=== PATIENT | male | born 1960 | race American Indian/Alaskan Native ===

== ENCOUNTER 2019-03-09 08:17 | Inpatient (IN) | payer MEDICARE ==
[2019-03-09 09:02] LABS: Hematocrit 44.4 % (35.5-45.6); Hemoglobin 14.3 gm/dl (11.8-15.2); Mean Corpuscular HGB Conc 32 % (32-34); Mean Corpuscular Volume 83 fl (84-94); Platelet Count 235 K/mm3 (140-440); Red Blood Count 5.33 M/mm3 (3.65-5.03); Red Cell Distribution Width 17.1 % (13.2-15.2)
[2019-03-09 09:12] LABS: Bilirubin,Urine NEG (Negative); Blood,Urine SM (Negative); Color,Urine Straw (Yellow); Urobilinogen,Urine < 2.0 mg/dL (<2.0)
[2019-03-09 09:20] LABS: Amphetamine Screen,Urine PRESUMPTIVE NEGATIVE; Benzodiazepines Screen,Urine PRESUMPTIVE NEGATIVE; Cannabinoid Screen,Urine PRESUMPTIVE NEGATIVE; Cocaine Screen,Urine PRESUMPTIVE NEGATIVE; Methadone Screen,Urine PRESUMPTIVE NEGATIVE; Opiate Screen,Urine PRESUMPTIVE NEGATIVE
[2019-03-09 09:20] LABS: Alanine Aminotransferase 11 units/L (7-56); BUN/Creatinine Ratio 14; Blood Urea Nitrogen 15 mg/dL (9-20); Calcium 9.6 mg/dL (8.4-10.2); Hemolysis Index 12
--- NOTE | 2019-03-09 09:22 | XRay Report ---
CHEST 2 VIEWS INDICATION / CLINICAL INFORMATION: hypoxia. COMPARISON: None available. FINDINGS: SUPPORT DEVICES: None. HEART / MEDIASTINUM: No significant abnormality. LUNGS / PLEURA: No significant pulmonary or pleural abnormality. No pneumothorax. ADDITIONAL FINDINGS: Degenerative changes are seen throughout the thoracic spine. IMPRESSION: 1. No acute findings. Signer Name: Willam Santos MD Signed: 03/09/2019 9:17 AM Workstation Name: [id number]
[2019-03-09] MEDS ORDERED: hydrALAZINE 25 MG TAB PO ONE (09:34)
--- NOTE | 2019-03-09 09:38 | Emergency Department Report ---
ED Seizure HPI - General Chief Complaint: Seizure Stated Complaint: SEIZURE Time Seen by Provider: 03/09/19 09:15 Source: EMS Mode of arrival: Stretcher Limitations: Other - History of Present Illness Initial Comments: 58-year-old -M[place] male patient with history of hypertension and mental delay presents with possible new onset seizure this morning. Due to patient's mental delay he is a poor historian. Patient's niece reports she found the patient lying on the couch with his legs very stiff in his arms shaking and unresponsive to her voice. She states the patient was had blood and foam coming from his mouth. He also reports the patient slid off the sofa and hit his head on a hard surface. Patient's sister states she is unsure if patient is compliant with his blood pressure medications; patient does admit that he has not been taking his medications. He and his family deny any previous history of seizures, TX/CVA/DVT/PE or other medical conditions. Patient admits to chronic bilateral lower leg swelling and pedal edema. He denies any leg pain or recent long travel, chest pain, shortness of breath, vision changes, headache, dizziness, fatigue, recent head injury, or numbness/tingling. Nurse reports patient did admit to chest tightness -: Sudden Witnessed:: Yes Seizure History: none Place: home Possible Precipitating Event: none Associated Symptoms: denies other symptoms Treatments Prior to Arrival: none - Related Data Previous Rx's Medication Instructions Recorded Last Taken Type amLODIPine 10 mg PO QDAY #30 tablet 03/12/19 Unknown Rx hydrALAZINE [Apresoline TAB] 100 mg PO TID #90 tab 03/12/19 Unknown Rx levETIRAcetam [Keppra TAB] 500 mg PO BID #60 tablet 03/12/19 Unknown Rx Allergies Allergy/AdvReac Type Severity Reaction Status Date / Time No Known Allergies Allergy Unverified 03/09/19 08:33 ED Review of Systems ROS: Stated complaint: SEIZURE Other details as noted in HPI Comment: All other systems reviewed and negative Constitutional: denies: chills, fever Cardiovascular: as per HPI Neurological: as per HPI ED Past Medical Hx - Past Medical History Previous Medical History?: Yes Hx Hypertension: Yes Additional medical history: developmental delays - Social History Smoking Status: Never Smoker Substance Use Type: None - Medications Home Medications: Home Medications Medication Instructions Recorded Confirmed Last Taken Type amLODIPine 10 mg PO QDAY #30 tablet 03/12/19 Unknown Rx hydrALAZINE [Apresoline TAB] 100 mg PO TID #90 tab 03/12/19 Unknown Rx levETIRAcetam [Keppra TAB] 500 mg PO BID #60 tablet 03/12/19 Unknown Rx ED Physical Exam - General Limitations: Other General appearance: alert, in no apparent distress - Head Head exam: Present: atraumatic, normocephalic - Eye Eye exam: Present: normal appearance, PERRL, EOMI. Absent: scleral icterus - ENT ENT exam: Present: mucous membranes moist, other (small left sided tongue injury noted without active bleeding ) - Neck Neck exam: Present: normal inspection, full ROM. Absent: tenderness - Respiratory Respiratory exam: Present: normal lung sounds bilaterally. Absent: respiratory distress, wheezes, rales, rhonchi, chest wall tenderness, accessory muscle use - Cardiovascular Cardiovascular Exam: Present: normal rhythm, tachycardia, normal heart sounds - GI/Abdominal GI/Abdominal exam: Present: soft, normal bowel sounds. Absent: distended, tenderness, guarding, rebound, rigid - Rectal Rectal exam: Present: deferred - Extremities Exam Extremities exam: Present: full ROM, pedal edema. Absent: joint swelling, calf tenderness - Back Exam Back exam: Present: normal inspection, full ROM - Neurological Exam Neurological exam: Present: alert, oriented X3, CN II-XII intact, normal gait, motor sensory deficit - Expanded Neurological Exam Expanded Cerebellar function: Finger to Nose: Normal, Heel to Bills: Normal, Romberg: Normal Motor strength exam: RUE: 5, LUE: 5, RLE: 5, LLE: 5 - Psychiatric Psychiatric exam: Present: normal mood, flat affect. Absent: agitated, anxious, manic - Skin Skin exam: Present: warm, dry, intact, normal color. Absent: rash, diaphoretic, erythema ED Course Vital Signs 03/09/19 03/09/19 03/09/19 08:48 09:30 09:56 Temperature 98.3 F Pulse Rate 105 H 100 H 96 H Respiratory 25 H 18 Rate Blood Pressure 175/103 175/103 Blood Pressure 186/106 [Left] O2 Sat by Pulse 94 94 Oximetry 03/09/19 03/09/19 03/09/19 10:00 10:30 11:00 Temperature Pulse Rate 97 H 91 H 86 Respiratory 21 19 18 Rate Blood Pressure 186/108 136/85 154/88 Blood Pressure [Left] O2 Sat by Pulse 95 94 95 Oximetry 03/09/19 03/09/19 03/09/19 11:10 11:20 11:30 Temperature Pulse Rate 92 H 88 89 Respiratory 29 H 20 19 Rate Blood Pressure 154/88 154/88 154/88 Blood Pressure [Left] O2 Sat by Pulse 96 95 95 Oximetry 03/09/19 03/09/19 03/09/19 11:40 11:50 12:00 Temperature Pulse Rate 83 84 98 H Respiratory 18 20 20 Rate Blood Pressure 154/88 154/88 154/88 Blood Pressure [Left] O2 Sat by Pulse 98 96 97 Oximetry 03/09/19 03/09/19 03/09/19 12:10 12:20 12:30 Temperature Pulse Rate Respiratory Rate Blood Pressure 160/112 160/112 160/112 Blood Pressure [Left] O2 Sat by Pulse 96 96 96 Oximetry 03/09/19 03/09/19 03/09/19 12:48 12:50 13:00 Temperature Pulse Rate Respiratory Rate Blood Pressure 160/112 160/112 160/112 Blood Pressure [Left] O2 Sat by Pulse 98 97 96 Oximetry 03/09/19 03/09/19 03/09/19 13:10 13:20 13:30 Temperature Pulse Rate Respiratory Rate Blood Pressure 160/112 160/112 160/112 Blood Pressure [Left] O2 Sat by Pulse 99 95 95 Oximetry 03/09/19 03/09/19 03/09/19 13:40 13:50 14:00 Temperature Pulse Rate Respiratory Rate Blood Pressure 160/112 181/103 181/103 Blood Pressure [Left] O2 Sat by Pulse 94 95 90 Oximetry 03/09/19 03/09/19 03/09/19 14:10 14:20 14:30 Temperature 97.6 F Pulse Rate 80 Respiratory 20 Rate Blood Pressure 162/99 162/99 162/99 Blood Pressure 162/99 [Left] O2 Sat by Pulse 97 96 98 Oximetry 03/09/19 03/09/19 03/09/19 14:40 14:50 15:00 Temperature Pulse Rate Respiratory Rate Blood Pressure 197/121 197/121 197/121 Blood Pressure [Left] O2 Sat by Pulse 95 92 94 Oximetry 03/09/19 15:10 Temperature Pulse Rate Respiratory Rate Blood Pressure 163/104 Blood Pressure [Left] O2 Sat by Pulse 93 Oximetry ED Medical Decision Making - Lab Data Result diagrams: 03/09/19 08:50 03/10/19 04:36 Lab Results 03/09/19 03/09/19 03/09/19 Range/Units 08:50 08:50 08:50 WBC 6.6 (4.5-11.0) K/mm3 RBC 5.33 H (3.65-5.03) M/mm3 Hgb 14.3 (11.8-15.2) gm/dl Hct 44.4 (35.5-45.6) % MCV 83 L (84-94) fl MCH 27 L (28-32) pg MCHC 32 (32-34) % RDW 17.1 H (13.2-15.2) % Plt Count 235 (140-440) K/mm3 PT (12.2-14.9) Sec. INR (0.87-1.13) APTT (24.2-36.6) Sec. POC ABG pH (7.35-7.45) POC ABG pCO2 (35-45) POC ABG pO2 (80-105) POC ABG HCO3 (22-26 mml/L) POC ABG Total CO2 (23-27mmol/L) POC ABG O2 Sat POC ABG Base Excess ((-2) - (+3)mmol/L) FiO2 % Sodium 138 (137-145) mmol/L Potassium 3.5 L (3.6-5.0) mmol/L Chloride 99.7 (98-107) mmol/L Carbon Dioxide 21 L (22-30) mmol/L Anion Gap 21 mmol/L BUN 15 (9-20) mg/dL Creatinine 1.1 (0.8-1.5) mg/dL Estimated GFR > 60 ml/min BUN/Creatinine Ratio 14 % Glucose 114 H (75-100) mg/dL POC Glucose (70-105) Calcium 9.6 (8.4-10.2) mg/dL Magnesium 1.90 (1.7-2.3) mg/dL Total Bilirubin 0.20 (0.1-1.2) mg/dL AST 16 (5-40) units/L ALT 11 (7-56) units/L Alkaline Phosphatase 70 (35-129) units/L Total Creatine Kinase (55-170) units/L Troponin T (0.00-0.029) ng/mL Total Protein 8.2 (6.3-8.2) g/dL Albumin 4.0 (3.9-5) g/dL Albumin/Globulin Ratio 1.0 % Urine Color (Yellow) Urine Turbidity (Clear) Urine pH (5.0-7.0) Ur Specific Tracy (1.003-1.030) Urine Protein (Negative) mg/dL Urine Glucose (UA) (Negative) mg/dL Urine Ketones (Negative) mg/dL Urine Blood (Negative) Urine Nitrite (Negative) Urine Bilirubin (Negative) Urine Urobilinogen (<2.0) mg/dL Ur Leukocyte Esterase (Negative) Urine WBC (Auto) (0.0-6.0) /HPF Urine RBC (Auto) (0.0-6.0) /HPF U Epithel Cells (Auto) (0-13.0) /HPF Urine Opiates Screen Urine Methadone Screen Ur Barbiturates Screen Ur Phencyclidine Scrn Ur Amphetamines Screen U Benzodiazepines Scrn Urine Cocaine Screen U Marijuana (THC) Screen Drugs of Abuse Note Plasma/Serum Alcohol < 0.01 (0-0.07) % 03/09/19 03/09/19 03/09/19 Range/Units 08:50 08:59 08:59 WBC (4.5-11.0) K/mm3 RBC (3.65-5.03) M/mm3 Hgb (11.8-15.2) gm/dl Hct (35.5-45.6) % MCV (84-94) fl MCH (28-32) pg MCHC (32-34) % RDW (13.2-15.2) % Plt Count (140-440) K/mm3 PT (12.2-14.9) Sec. INR (0.87-1.13) APTT (24.2-36.6) Sec. POC ABG pH (7.35-7.45) POC ABG pCO2 (35-45) POC ABG pO2 (80-105) POC ABG HCO3 (22-26 mml/L) POC ABG Total CO2 (23-27mmol/L) POC ABG O2 Sat POC ABG Base Excess ((-2) - (+3)mmol/L) FiO2 % Sodium (137-145) mmol/L Potassium (3.6-5.0) mmol/L Chloride (98-107) mmol/L Carbon Dioxide (22-30) mmol/L Anion Gap mmol/L BUN (9-20) mg/dL Creatinine (0.8-1.5) mg/dL Estimated GFR ml/min BUN/Creatinine Ratio % Glucose (75-100) mg/dL POC Glucose (70-105) Calcium (8.4-10.2) mg/dL Magnesium (1.7-2.3) mg/dL Total Bilirubin (0.1-1.2) mg/dL AST (5-40) units/L ALT (7-56) units/L Alkaline Phosphatase (35-129) units/L Total Creatine Kinase 159 (55-170) units/L Troponin T < 0.010 (0.00-0.029) ng/mL Total Protein (6.3-8.2) g/dL Albumin (3.9-5) g/dL Albumin/Globulin Ratio % Urine Color Straw (Yellow) Urine Turbidity Clear (Clear) Urine pH 6.0 (5.0-7.0) Ur Specific Tracy 1.014 (1.003-1.030) Urine Protein 100 mg/dl (Negative) mg/dL Urine Glucose (UA) Neg (Negative) mg/dL Urine Ketones Neg (Negative) mg/dL Urine Blood Sm (Negative) Urine Nitrite Neg (Negative) Urine Bilirubin Neg (Negative) Urine Urobilinogen < 2.0 (<2.0) mg/dL Ur Leukocyte Esterase Neg (Negative) Urine WBC (Auto) 1.0 (0.0-6.0) /HPF Urine RBC (Auto) 5.0 (0.0-6.0) /HPF U Epithel Cells (Auto) < 1.0 (0-13.0) /HPF Urine Opiates Screen Presumptive negative Urine Methadone Screen Presumptive negative Ur Barbiturates Screen Presumptive negative Ur Phencyclidine Scrn Presumptive negative Ur Amphetamines Screen Presumptive negative U Benzodiazepines Scrn Presumptive negative Urine Cocaine Screen Presumptive negative U Marijuana (THC) Screen Presumptive negative Drugs of Abuse Note Disclamer Plasma/Serum Alcohol (0-0.07) % 03/09/19 03/09/19 03/09/19 Range/Units 09:04 09:15 11:19 WBC (4.5-11.0) K/mm3 RBC (3.65-5.03) M/mm3 Hgb (11.8-15.2) gm/dl Hct (35.5-45.6) % MCV (84-94) fl MCH (28-32) pg MCHC (32-34) % RDW (13.2-15.2) % Plt Count (140-440) K/mm3 PT 13.1 (12.2-14.9) Sec. INR 1.00 (0.87-1.13) APTT 25.9 (24.2-36.6) Sec. POC ABG pH 7.393 (7.35-7.45) POC ABG pCO2 42.4 (35-45) POC ABG pO2 77 L (80-105) POC ABG HCO3 25.9 (22-26 mml/L) POC ABG Total CO2 27 (23-27mmol/L) POC ABG O2 Sat 95 POC ABG Base Excess 1 ((-2) - (+3)mmol/L) FiO2 21 % Sodium (137-145) mmol/L Potassium (3.6-5.0) mmol/L Chloride (98-107) mmol/L Carbon Dioxide (22-30) mmol/L Anion Gap mmol/L BUN (9-20) mg/dL Creatinine (0.8-1.5) mg/dL Estimated GFR ml/min BUN/Creatinine Ratio % Glucose (75-100) mg/dL POC Glucose 77 (70-105) Calcium (8.4-10.2) mg/dL Magnesium (1.7-2.3) mg/dL Total Bilirubin (0.1-1.2) mg/dL AST (5-40) units/L ALT (7-56) units/L Alkaline Phosphatase (35-129) units/L Total Creatine Kinase (55-170) units/L Troponin T (0.00-0.029) ng/mL Total Protein (6.3-8.2) g/dL Albumin (3.9-5) g/dL Albumin/Globulin Ratio % Urine Color (Yellow) Urine Turbidity (Clear) Urine pH (5.0-7.0) Ur Specific Tracy (1.003-1.030) Urine Protein (Negative) mg/dL Urine Glucose (UA) (Negative) mg/dL Urine Ketones (Negative) mg/dL Urine Blood (Negative) Urine Nitrite (Negative) Urine Bilirubin (Negative) Urine Urobilinogen (<2.0) mg/dL Ur Leukocyte Esterase (Negative) Urine WBC (Auto) (0.0-6.0) /HPF Urine RBC (Auto) (0.0-6.0) /HPF U Epithel Cells (Auto) (0-13.0) /HPF Urine Opiates Screen Urine Methadone Screen Ur Barbiturates Screen Ur Phencyclidine Scrn Ur Amphetamines Screen U Benzodiazepines Scrn Urine Cocaine Screen U Marijuana (THC) Screen Drugs of Abuse Note Plasma/Serum Alcohol (0-0.07) % - Radiology Data Radiology results: report reviewed CHEST 2 VIEWS INDICATION / CLINICAL INFORMATION: hypoxia. COMPARISON: None available. FINDINGS: SUPPORT DEVICES: None. HEART / MEDIASTINUM: No significant abnormality. LUNGS / PLEURA: No significant pulmonary or pleural abnormality. No pneum othorax. ADDITIONAL FINDINGS: Degenerative changes are seen throughout the thoracic spine. IMPRESSION: 1. No acute findings. . . . . CT head/brain wo con INDICATION / CLINICAL INFORMATION: 58 years Male; possible new onset seizure. TECHNIQUE: Routine CT head without contrast. All CT scans at this location are performed using CT dose reduction for [employer] by means of automated exposure control. COMPARISON: None. FINDINGS: BRAIN / INTRACRANIAL CONTENTS: No acute hemorrhage, mass effect, midline shift, hydrocephalus, or acute, large territorial infarct. No chronic infarct or atrophy appreciated. There are mild areas of decreased attenuation in the white matter of the cerebral hemispheres. These are nonspecific findings and may be related to microangiopathy (hypertension, diabetes, atherosclerosis), given the patient's age. CRANIOCERVICAL JUNCTION: No significant abnormality. ORBITS: No significant abnormality of visualized orbits. SINUSES / MASTOIDS: No significant abnormality the visualized paranasal sinuses or mastoid air cells. ADDITIONAL FINDINGS: None. IMPRESSION: 1. No focal mass, hemorrhage, hydrocephalus, or acute, large territorial infarct. . . . . . CTA CHEST WITH IV CONTRAST INDICATION: Hypoxia. TECHNIQUE: Axial CT images were obtained through the chest after injection of 100 mL Omnipaque 350 IV contrast. 3 plane MIP reconstructions were produced. All CT scans at this location are performed using CT dose reduction for ALARA by means of automated exposure control. COMPARISON: 2 views of the chest from earlier today. FINDINGS: PULMONARY ARTERIES: The pulmonary arteries are fairly opacified. No distinct central from embolism is seen. AORTA AND ARTERIES: No acute abnormality. MEDIASTINUM: There is marked left ventricular hypertrophy with a trace pericardial effusion. No mediastinal mass, lymphadenopathy or other significant abnormality is seen. LUNGS: No suspicious consolidation, nodule or mass. No pneumothorax or pleural effusion. ADDITIONAL FINDINGS: None. UPPER ABDOMEN: No acute abnormality is noted. Multiple hepatic cysts measure up to 3.7 cm medially along the left hepatic lobe. A hypodense left adrenal nodule measures 3.1 x 2.2 cm and is incompletely evaluated. No additional significant abnormality is seen. BONES: No acute abnormality is noted. There are degenerative changes throughout the spine. IMPRESSION: 1. No distinct central pulmonary artery thromboembolism. 2. No acute abnormality of the chest. 3. Additional findings as above. - Medical Decision Making 58-year-old male patient with history of hypertension and mental delay here for new onset seizure. Labs are without acute findings. CT head is WNL. Vitals show continued hypoxia of 92-94% on room air. Patient satting at 97% with 2 L oxygen via nasal cannula. No further seizure activity has been observed patient here in ED. Heart score = 4. Discussed patient with Dr. Weaver to be admitted for encephalopathy and hypoxia Critical care attestation.: If time is entered above; I have spent that time in minutes in the direct care of this critically ill patient, excluding procedure time. ED Disposition Clinical Impression: Encephalopathy, Hypoxia, Seizure-like activity Disposition: OP ADMIT IP TO THIS HOSP Is pt being admited?: Yes Condition: Fair
[2019-03-09 09:43] LABS: Partial Thromboplastin Time 25.9 Sec. (24.2-36.6)
--- NOTE | 2019-03-09 11:27 | Cat Scan Report ---
CT head/brain wo con INDICATION / CLINICAL INFORMATION: 58 years Male; possible new onset seizure. TECHNIQUE: Routine CT head without contrast. All CT scans at this location are performed using CT dos e reduction for ALARA by means of automated exposure control. COMPARISON: None. FINDINGS: BRAIN / INTRACRANIAL CONTENTS: No acute hemorrhage, mass effect, midline shift, hydrocephalus, or acu te, large territorial infarct. No chronic infarct or atrophy appreciated. There are mild areas of dec reased attenuation in the white matter of the cerebral hemispheres. These are nonspecific findings an d may be related to microangiopathy (hypertension, diabetes, atherosclerosis), given the patient's ag e. CRANIOCERVICAL JUNCTION: No significant abnormality. ORBITS: No significant abnormality of visualized orbits. SINUSES / MASTOIDS: No significant abnormality the visualized paranasal sinuses or mastoid air cells. ADDITIONAL FINDINGS: None. IMPRESSION: 1. No focal mass, hemorrhage, hydrocephalus, or acute, large territorial infarct. Signer Name: Thong Winn MD, III Signed: 03/09/2019 11:22 AM Workstation Name: [id number]
--- NOTE | 2019-03-09 13:19 | Cat Scan Report ---
CTA CHEST WITH IV CONTRAST INDICATION: Hypoxia. TECHNIQUE: Axial CT images were obtained through the chest after injection of 100 mL Omnipaque 350 IV contrast. 3 plane MIP reconstructions were produced. All CT scans at this location are performed using CT dose reduction for ALARA by means of automated exposure control. COMPARISON: 2 views of the chest from earlier today. FINDINGS: PULMONARY ARTERIES: The pulmonary arteries are fairly opacified. No distinct central from embolism is seen. AORTA AND ARTERIES: No acute abnormality. MEDIASTINUM: There is marked left ventricular hypertrophy with a trace pericardial effusion. No media stinal mass, lymphadenopathy or other significant abnormality is seen. LUNGS: No suspicious consolidation, nodule or mass. No pneumothorax or pleural effusion. ADDITIONAL FINDINGS: None. UPPER ABDOMEN: No acute abnormality is noted. Multiple hepatic cysts measure up to 3.7 cm medially al eric the left hepatic lobe. A hypodense left adrenal nodule measures 3.1 x 2.2 cm and is incompletely evaluated. No additional significant abnormality is seen. BONES: No acute abnormality is noted. There are degenerative changes throughout the spine. IMPRESSION: 1. No distinct central pulmonary artery thromboembolism. 2. No acute abnormality of the chest. 3. Additional findings as above. Signer Name: Mukesh Pérez MD Signed: 03/09/2019 1:15 PM Workstation Name: [id number]
[2019-03-09] MEDS ORDERED: ACETAMINOPHEN 325 MG TAB PO PRN (13:43)
[2019-03-09] MEDS ORDERED: ONDANSETRON 4 MG/2 ML INJ IV PRN (13:43)
--- NOTE | 2019-03-09 13:43 | History and Physical Report ---
History of Present Illness Chief complaint: He had a seizure History of present illness: 58 YO Male with HTN, Developmental Delay presents to ED for evaluation. Pt is confused, lethargic and unable to provide history. Pt history taken from EMS, ED staff, and patient family. As per family, the patient was in his usual state of health and lying on the couch. The patient suddenly became unresponsive and was noticed by family to have "foam coming out of his mouth" as well as shaking uncontrollably. Pt fell off the couch and struck his head on the floor and bit his tongue. EMS was notified, and upon arrival the patient was found to be in distress and transported to [facility]. Pt seen and evaluated in ED and found to have Encephalopathy, Acidosis, as well as New onset seizure. Pt admitted to medical floor. Pt unable to provide further history. Pt is confused, and lethargic but has a positive gag reflex, and in able to protect his airway. No prior admission for review. All listed medication reconciled at time of admission. Past History Past Medical History: hypertension, other (see HPI) Past Surgical History: No surgical history, Other (reviewed) Social history: single. denies: smoking, alcohol abuse, prescription drug abuse Family history: no significant family history, other (reviewed) Medications and Allergies Allergies Allergy/AdvReac Type Severity Reaction Status Date / Time No Known Allergies Allergy Unverified 03/09/19 08:33 Home Medications Medication Instructions Recorded Confirmed Last Taken Type amLODIPine [Norvasc] 5 mg PO DAILY 03/09/19 03/09/19 Unknown History Review of Systems ROS unobtainable: due to mental status Exam - Constitutional Vitals: Temp Pulse Resp BP Pulse Ox 98.3 F 91 H 19 136/85 94 03/09/19 08:48 03/09/19 10:30 03/09/19 10:30 03/09/19 10:30 03/09/19 10:30 General appearance: Present: mild distress, obese - EENT Eyes: Present: miosis ENT: hearing intact, clear oral mucosa - Neck Neck: Present: supple, normal ROM - Respiratory Respiratory effort: normal Respiratory: bilateral: CTA - Cardiovascular Heart Sounds: Present: S1 & S2. Absent: rub, click - Extremities Extremities: pulses symmetrical, No edema Peripheral Pulses: within normal limits - Abdominal General gastrointestinal: Present: soft, non-tender, non-distended, normal bowel sounds Male genitourinary: Present: normal - Integumentary Integumentary: Present: clear, warm, dry - Musculoskeletal Musculoskeletal: generalized weakness - Psychiatric Psychiatric: no appropriate mood/affect, no intact judgment & insight, no memory intact - Neurologic Neurologic: CNII-XII intact, no focal deficits, moves all extremities, no gait normal Results - Labs CBC & Chem 7: 03/09/19 08:50 03/09/19 08:50 Labs: Abnormal lab results 03/09/19 03/09/19 03/09/19 Range/Units 08:50 08:50 11:19 RBC 5.33 H (3.65-5.03) M/mm3 MCV 83 L (84-94) fl MCH 27 L (28-32) pg RDW 17.1 H (13.2-15.2) % POC ABG pO2 77 L (80-105) Potassium 3.5 L (3.6-5.0) mmol/L Carbon Dioxide 21 L (22-30) mmol/L Glucose 114 H (75-100) mg/dL Assessment and Plan - Patient Problems (1) Encephalopathy Current Visit: Yes Status: Acute Plan to address problem: CT Head, Neuro check, seizure precautions, seizure precautions, fall precautions, thyroid panel (2) Seizure disorder Current Visit: Yes Status: Acute Plan to address problem: EEG, seizure precautions, thyroid panel, supportive care. (3) Acidosis Current Visit: Yes Status: Acute Plan to address problem: IVF resuscitation therapy, CMP, supportive are, repeat bmp in am. (4) DVT prophylaxis Current Visit: Yes Status: Acute Plan to address problem: SCD to BLE while in bed, prophylactic anticoagulation
[2019-03-09 19:47] LABS: Free T4 (Free Thyroxine) 1.24 ng/dL (0.76-1.46)
[2019-03-09] MEDS: ENOXAPARIN 40 MG/0.4 ML INJ SUB-Q SCH (21:37)
[2019-03-10] MEDS: oxyCODONE /ACETAMINOPHEN 5-325MG TAB PO PRN ×2 (03:38→15:01)
[2019-03-10 05:21] LABS: Alanine Aminotransferase 14 units/L (7-56); Albumin 3.5 g/dL (3.9-5); BUN/Creatinine Ratio 15; Blood Urea Nitrogen 16 mg/dL (9-20); Calcium 8.8 mg/dL (8.4-10.2); Hemolysis Index 5
[2019-03-10] MEDS: POTASSIUM CHLORIDE ER 20 MEQ TAB PO SCH ×2 (10:36→14:55)
[2019-03-10] MEDS: amLODIPine 5 MG TAB PO SCH (10:36)
[2019-03-10] MEDS ORDERED: FLU VACC QUAD 2019-20 (3 YR UP)/PF 60 MCG/0.5 ML SYRINGE IM ONE (12:00)
--- NOTE | 2019-03-10 13:02 | Progress Note ---
Assessment and Plan Assessment and plan: Seizures patient presented with seizures says he last had seizure in 1968 Morbid obesity adviced diet and exercise Hypertensive urgency BP uncontrolled continue Norvasc 5 mg po daily add Hydralazine Full code History Interval history: patient presented with seizures Hospitalist Physical - Physical exam Narrative exam: Gen: Not in acute distress, lying in bed,morbidly obese HEENT: Normocephalic, atraumatic Neck: supple, no JVD Heart: S1 and S2 reg, no murmurs, rubs or gallop Lungs: Clear to auscultation bilaterally, Abd: soft, non tender, non distended, normal BS, Ext: No edema, no clubbing, no cyanosis Neuro: Awake, alert, oriented X 3, no focal neurological signs - Constitutional Vitals: Temp Pulse Resp BP Pulse Ox 98.2 F 81 20 162/90 95 03/10/19 06:32 03/10/19 10:36 03/10/19 06:32 03/10/19 10:36 03/10/19 06:32 General appearance: Present: obese Results - Labs CBC & Chem 7: 03/09/19 08:50 03/10/19 04:36 Labs: Laboratory Last Values WBC 6.6 K/mm3 (4.5-11.0) 03/09/19 08:50 RBC 5.33 M/mm3 (3.65-5.03) H 03/09/19 08:50 Hgb 14.3 gm/dl (11.8-15.2) 03/09/19 08:50 Hct 44.4 % (35.5-45.6) 03/09/19 08:50 MCV 83 fl (84-94) L 03/09/19 08:50 MCH 27 pg (28-32) L 03/09/19 08:50 MCHC 32 % (32-34) 03/09/19 08:50 RDW 17.1 % (13.2-15.2) H 03/09/19 08:50 Plt Count 235 K/mm3 (140-440) 03/09/19 08:50 PT 13.1 Sec. (12.2-14.9) 03/09/19 09:04 INR 1.00 (0.87-1.13) 03/09/19 09:04 APTT 25.9 Sec. (24.2-36.6) 03/09/19 09:04 POC ABG pH 7.393 (7.35-7.45) 03/09/19 11:19 POC ABG pCO2 42.4 (35-45) 03/09/19 11:19 POC ABG pO2 77 (80-105) L 03/09/19 11:19 POC ABG HCO3 25.9 (22-26 mml/L) 03/09/19 11:19 POC ABG Total CO2 27 (23-27mmol/L) 03/09/19 11:19 POC ABG O2 Sat 95 03/09/19 11:19 POC ABG Base Excess 1 ((-2) - (+3)mmol/L) 03/09/19 11:19 FiO2 21 % 03/09/19 11:19 Sodium 138 mmol/L (137-145) 03/10/19 04:36 Potassium 3.3 mmol/L (3.6-5.0) L 03/10/19 04:36 Chloride 100.0 mmol/L (98-107) 03/10/19 04:36 Carbon Dioxide 26 mmol/L (22-30) 03/10/19 04:36 Anion Gap 15 mmol/L 03/10/19 04:36 BUN 16 mg/dL (9-20) 03/10/19 04:36 Creatinine 1.1 mg/dL (0.8-1.5) 03/10/19 04:36 Estimated GFR > 60 ml/min 03/10/19 04:36 BUN/Creatinine Ratio 15 % 03/10/19 04:36 Glucose 99 mg/dL (75-100) 03/10/19 04:36 POC Glucose 108 (70-105) H 03/09/19 21:10 Calcium 8.8 mg/dL (8.4-10.2) 03/10/19 04:36 Magnesium 1.90 mg/dL (1.7-2.3) 03/09/19 08:50 Total Bilirubin 0.30 mg/dL (0.1-1.2) 03/10/19 04:36 AST 21 units/L (5-40) 03/10/19 04:36 ALT 14 units/L (7-56) 03/10/19 04:36 Alkaline Phosphatase 57 units/L (35-129) 03/10/19 04:36 Total Creatine Kinase 159 units/L (55-170) 03/09/19 08:50 Troponin T 0.019 ng/mL (0.00-0.029) 03/09/19 12:00 Total Protein 6.9 g/dL (6.3-8.2) 03/10/19 04:36 Albumin 3.5 g/dL (3.9-5) L 03/10/19 04:36 Albumin/Globulin Ratio 1.0 % 03/10/19 04:36 TSH 0.736 mlU/mL (0.270-4.200) 03/09/19 18:35 Free T4 1.24 ng/dL (0.76-1.46) 03/09/19 18:35 Urine Color Straw (Yellow) 03/09/19 08:59 Urine Turbidity Clear (Clear) 03/09/19 08:59 Urine pH 6.0 (5.0-7.0) 03/09/19 08:59 Ur Specific [place] 1.014 (1.003-1.030) 03/09/19 08:59 Urine Protein 100 mg/dl mg/dL (Negative) 03/09/19 08:59 Urine Glucose (UA) Neg mg/dL (Negative) 03/09/19 08:59 Urine Ketones Neg mg/dL (Negative) 03/09/19 08:59 Urine Blood Sm (Negative) 03/09/19 08:59 Urine Nitrite Neg (Negative) 03/09/19 08:59 Urine Bilirubin Neg (Negative) 03/09/19 08:59 Urine Urobilinogen < 2.0 mg/dL (<2.0) 03/09/19 08:59 Ur Leukocyte Esterase Neg (Negative) 03/09/19 08:59 Urine WBC (Auto) 1.0 /HPF (0.0-6.0) 03/09/19 08:59 Urine RBC (Auto) 5.0 /HPF (0.0-6.0) 03/09/19 08:59 U Epithel Cells (Auto) < 1.0 /HPF (0-13.0) 03/09/19 08:59 Urine Opiates Screen Presumptive negative 03/09/19 08:59 Urine Methadone Screen Presumptive negative 03/09/19 08:59 Ur Barbiturates Screen Presumptive negative 03/09/19 08:59 Ur Phencyclidine Scrn Presumptive negative 03/09/19 08:59 Ur Amphetamines Screen Presumptive negative 03/09/19 08:59 U Benzodiazepines Scrn Presumptive negative 03/09/19 08:59 Urine Cocaine Screen Presumptive negative 03/09/19 08:59 U Marijuana (THC) Screen Presumptive negative 03/09/19 08:59 Drugs of Abuse Note Disclamer 03/09/19 08:59 Plasma/Serum Alcohol < 0.01 % (0-0.07) 03/09/19 08:50 Active Medications - Current Medications Current Medications: Generic Name Dose Route Start Last Admin Trade Name Freq PRN Reason Stop Dose Admin Acetaminophen 650 mg 03/09/19 13:43 03/10/19 00:42 Tylenol PO 650 mg Q4H PRN Administration Pain MILD(1-3)/Fever >100.5/DONALDSON Amlodipine Besylate 5 mg 03/10/19 10:00 03/10/19 10:36 Amlodipine PO 5 mg DAILY DHEERAJ Administration Enoxaparin Sodium 40 mg 03/09/19 22:00 03/09/19 21:37 Enoxaparin SUB-Q 40 mg QDAY@2200 DHEERAJ Administration Ondansetron HCl 4 mg 03/09/19 13:43 Zofran IV Q8H PRN Nausea And Vomiting Oxycodone/Acetaminophen 1 tab 03/10/19 03:20 03/10/19 03:38 Percocet 5/325 PO 1 tab Q6H PRN Administration Pain, Moderate (4-6) Potassium Chloride 40 meq 03/10/19 09:00 03/10/19 10:36 K-Dur PO 03/10/19 15:01 40 meq Q6H DHEERAJ Administration Sodium Chloride 10 ml 03/09/19 22:00 03/10/19 10:37 Sodium Chloride Flush Syringe 10 Ml IV 10 ml BID DHEERAJ Administration Sodium Chloride 10 ml 03/09/19 13:43 Sodium Chloride Flush Syringe 10 Ml IV PRN PRN LINE FLUSH
[2019-03-10] MEDS: hydrALAZINE 25 MG TAB PO SCH ×2 (15:53→21:23)
--- NOTE | 2019-03-10 17:53 | Consultation ---
History of Present Illness Consult date: 03/10/19 Chief complaint: seizure History of present illness: This is a 58 YO M who presented to the ED with seizure. Per the notes pt started foaming at the mouth and shaking and fell off the couch and hit his head. On my arrival he is totally at baseline. SAys he had a seizure before in 1968 but can not give details. Not on seizure medications. Past History Past Medical History: hypertension, other (see HPI) Past Surgical History: No surgical history, Other (reviewed) Social history: single. denies: smoking, alcohol abuse, prescription drug abuse Family history: no significant family history, other (reviewed) Medications and Allergies Allergies Allergy/AdvReac Type Severity Reaction Status Date / Time No Known Allergies Allergy Unverified 03/09/19 08:33 Home Medications Medication Instructions Recorded Confirmed Last Taken Type amLODIPine [Norvasc] 5 mg PO DAILY 03/09/19 03/09/19 Unknown History Active Meds: Active Medications Acetaminophen (Tylenol) 650 mg PO Q4H PRN PRN Reason: Pain MILD(1-3)/Fever >100.5/DONALDSON Last Admin: 03/10/19 00:42 Dose: 650 mg Documented by: Amlodipine Besylate (Amlodipine) 5 mg PO DAILY [facility] Last Admin: 03/10/19 10:36 Dose: 5 mg Documented by: Enoxaparin Sodium (Enoxaparin) 40 mg SUB-Q QDAY@2200 [facility] Last Admin: 03/09/19 21:37 Dose: 40 mg Documented by: Hydralazine HCl (Apresoline) 50 mg PO Q8HR [facility] Last Admin: 03/10/19 15:53 Dose: 50 mg Documented by: Ondansetron HCl (Zofran) 4 mg IV Q8H PRN PRN Reason: Nausea And Vomiting Oxycodone/Acetaminophen (Percocet 5/325) 1 tab PO Q6H PRN PRN Reason: Pain, Moderate (4-6) Last Admin: 03/10/19 15:01 Dose: 1 tab Documented by: Sodium Chloride (Sodium Chloride Flush Syringe 10 Ml) 10 ml IV BID [facility] Last Admin: 03/10/19 10:37 Dose: 10 ml Documented by: Sodium Chloride (Sodium Chloride Flush Syringe 10 Ml) 10 ml IV PRN PRN PRN Reason: LINE FLUSH Review of Systems Neurological: seizures Physical Examination - Vital Signs Vital Signs: Vital Signs Temp Pulse Resp BP Pulse Ox 98.3 F 105 H 25 H 186/106 94 03/09/19 08:48 03/09/19 08:48 03/09/19 08:48 03/09/19 08:48 03/09/19 08:48 - Constitutional General appearance: comfortable - EENT EENT: Present: mucous membranes moist - Respiratory Respiratory: Present: lungs clear - Cardiovascular Cardiovascular: Present: regular rate - Integumentary Integumentary: Present: normal - Neurologic Cranial nerve examination: PERRL, EOMI, face symmetric, tongue midline Speech examination: intact Sensorimotor examination: intact Detailed motor examination: grossly full strength in Reflex and gait examination: intact Reflexes: 1+: ankle, bicep, knee, tricep - Psychiatric Psychiatric: Present: mood/affect appropriate Results - Laboratory Findings CBC and BMP: 03/09/19 08:50 03/10/19 04:36 Abnormal Lab Findings: Abnormal Labs 03/09/19 03/09/19 03/09/19 08:50 08:50 11:19 RBC 5.33 H MCV 83 L MCH 27 L RDW 17.1 H POC ABG pO2 77 L Potassium 3.5 L Carbon Dioxide 21 L Glucose 114 H POC Glucose Albumin 03/09/19 03/10/19 21:10 04:36 RBC MCV MCH RDW POC ABG pO2 Potassium 3.3 L Carbon Dioxide Glucose POC Glucose 108 H Albumin 3.5 L - Diagnostic Findings Additional findings: Head CT WNL Assessment and Plan This is a 58 YO M with at least 2 seizures. REcommend: EEG MRI Brain w/wo(if no contrast contraindication) Would start Keppra 500 mg BID since this is not pt's first seizure Pt will need to follow up with neuro outpatient Seizure precautions No driving as per [place] law x 6 months post seizure Continue care for all medical issues as you are doing
[2019-03-10] MEDS: ENOXAPARIN 40 MG/0.4 ML INJ SUB-Q SCH (21:20)
[2019-03-10] MEDS: levETIRAcetam 500 MG TAB PO SCH (21:22)
[2019-03-11] MEDS: oxyCODONE /ACETAMINOPHEN 5-325MG TAB PO PRN (09:38)
[2019-03-11] MEDS: hydrALAZINE 25 MG TAB PO SCH ×3 (11:41→18:14)
[2019-03-11] MEDS: amLODIPine 5 MG TAB PO SCH (11:42)
[2019-03-11] MEDS: levETIRAcetam 500 MG TAB PO SCH ×2 (11:42→21:23)
--- NOTE | 2019-03-11 11:57 | Magnetic Resonance Report ---
MRI BRAIN WITHOUT CONTRAST INDICATION / CLINICAL INFORMATION: seizure. TECHNIQUE: Multiplanar, multisequence MR images of the brain were obtained. COMPARISON: None available. FINDINGS: BRAIN / INTRACRANIAL CONTENTS: There is extensive a cerebral white matter disease, most notably invol ving the periventricular regions and most consistent with microvascular angiopathy at. There is also hypointensity along the left parietal subcortical region on the susceptibility weighted imaging which likely reflects chronic blood products related to old ischemic changes. The diffusion imaging reveal s no evidence of acute infarction. The ventricular system is appropriate in size and configuration. No extra-axial fluid collections or significant mass effect is identified. The motion degrades image quality, particularly on the postcon trast sequences. However, no definitive intracranial enhancing lesions are appreciated. CRANIOCERVICAL JUNCTION: No significant abnormality. VASCULAR FLOW-VOIDS: There is relative small caliber of the vertebral basilar system which is likely developmental. The distal internal carotid arteries appear to demonstrate appropriate signal voids. ORBITS: No significant abnormality of visualized orbits. SINUSES / MASTOIDS: There is minimal mucosal thickening within the ethmoid air cells. ADDITIONAL FINDINGS: None. IMPRESSION: 1. There is extensive microvascular angiopathy as detailed above without evidence of acute infarction . Signer Name: Oj Thornton MD Signed: 03/11/2019 11:53 AM Workstation Name: [id number]
--- NOTE | 2019-03-11 16:47 | Progress Note ---
Assessment and Plan Assessment and plan: Seizures patient presented with seizures says he last had seizure in 1968 For EEG today Neurology following Morbid obesity adviced diet and exercise Hypertensive urgency BP uncontrolled Increase Norvasc to 10mg po daily Increase Hydralazine to 100mg tid Full code status. History Interval history: patient presented with seizures Hospitalist Physical - Physical exam Narrative exam: Gen: Not in acute distress, lying in bed,morbidly obese HEENT: Normocephalic, atraumatic Neck: supple, no JVD Heart: S1 and S2 reg, no murmurs, rubs or gallop Lungs: Clear to auscultation bilaterally, Abd: soft, non tender, non distended, normal BS, Ext: No edema, no clubbing, no cyanosis Neuro: Awake, alert, oriented X 3, no focal neurological signs - Constitutional Vitals: Temp Pulse Resp BP Pulse Ox 98.4 F 99 H 18 182/109 92 03/11/19 11:35 03/11/19 11:35 03/11/19 11:35 03/11/19 11:35 03/11/19 11:35 General appearance: Present: obese Results - Labs CBC & Chem 7: 03/09/19 08:50 03/10/19 04:36 Labs: Laboratory Last Values WBC 6.6 K/mm3 (4.5-11.0) 03/09/19 08:50 RBC 5.33 M/mm3 (3.65-5.03) H 03/09/19 08:50 Hgb 14.3 gm/dl (11.8-15.2) 03/09/19 08:50 Hct 44.4 % (35.5-45.6) 03/09/19 08:50 MCV 83 fl (84-94) L 03/09/19 08:50 MCH 27 pg (28-32) L 03/09/19 08:50 MCHC 32 % (32-34) 03/09/19 08:50 RDW 17.1 % (13.2-15.2) H 03/09/19 08:50 Plt Count 235 K/mm3 (140-440) 03/09/19 08:50 PT 13.1 Sec. (12.2-14.9) 03/09/19 09:04 INR 1.00 (0.87-1.13) 03/09/19 09:04 APTT 25.9 Sec. (24.2-36.6) 03/09/19 09:04 POC ABG pH 7.393 (7.35-7.45) 03/09/19 11:19 POC ABG pCO2 42.4 (35-45) 03/09/19 11:19 POC ABG pO2 77 (80-105) L 03/09/19 11:19 POC ABG HCO3 25.9 (22-26 mml/L) 03/09/19 11:19 POC ABG Total CO2 27 (23-27mmol/L) 03/09/19 11:19 POC ABG O2 Sat 95 03/09/19 11:19 POC ABG Base Excess 1 ((-2) - (+3)mmol/L) 03/09/19 11:19 FiO2 21 % 03/09/19 11:19 Sodium 138 mmol/L (137-145) 03/10/19 04:36 Potassium 3.3 mmol/L (3.6-5.0) L 03/10/19 04:36 Chloride 100.0 mmol/L (98-107) 03/10/19 04:36 Carbon Dioxide 26 mmol/L (22-30) 03/10/19 04:36 Anion Gap 15 mmol/L 03/10/19 04:36 BUN 16 mg/dL (9-20) 03/10/19 04:36 Creatinine 1.1 mg/dL (0.8-1.5) 03/10/19 04:36 Estimated GFR > 60 ml/min 03/10/19 04:36 BUN/Creatinine Ratio 15 % 03/10/19 04:36 Glucose 99 mg/dL (75-100) 03/10/19 04:36 POC Glucose 108 (70-105) H 03/09/19 21:10 Calcium 8.8 mg/dL (8.4-10.2) 03/10/19 04:36 Magnesium 1.90 mg/dL (1.7-2.3) 03/09/19 08:50 Total Bilirubin 0.30 mg/dL (0.1-1.2) 03/10/19 04:36 AST 21 units/L (5-40) 03/10/19 04:36 ALT 14 units/L (7-56) 03/10/19 04:36 Alkaline Phosphatase 57 units/L (35-129) 03/10/19 04:36 Total Creatine Kinase 159 units/L (55-170) 03/09/19 08:50 Troponin T 0.019 ng/mL (0.00-0.029) 03/09/19 12:00 Total Protein 6.9 g/dL (6.3-8.2) 03/10/19 04:36 Albumin 3.5 g/dL (3.9-5) L 03/10/19 04:36 Albumin/Globulin Ratio 1.0 % 03/10/19 04:36 TSH 0.736 mlU/mL (0.270-4.200) 03/09/19 18:35 Free T4 1.24 ng/dL (0.76-1.46) 03/09/19 18:35 Urine Color Straw (Yellow) 03/09/19 08:59 Urine Turbidity Clear (Clear) 03/09/19 08:59 Urine pH 6.0 (5.0-7.0) 03/09/19 08:59 Ur Specific [place] 1.014 (1.003-1.030) 03/09/19 08:59 Urine Protein 100 mg/dl mg/dL (Negative) 03/09/19 08:59 Urine Glucose (UA) Neg mg/dL (Negative) 03/09/19 08:59 Urine Ketones Neg mg/dL (Negative) 03/09/19 08:59 Urine Blood Sm (Negative) 03/09/19 08:59 Urine Nitrite Neg (Negative) 03/09/19 08:59 Urine Bilirubin Neg (Negative) 03/09/19 08:59 Urine Urobilinogen < 2.0 mg/dL (<2.0) 03/09/19 08:59 Ur Leukocyte Esterase Neg (Negative) 03/09/19 08:59 Urine WBC (Auto) 1.0 /HPF (0.0-6.0) 03/09/19 08:59 Urine RBC (Auto) 5.0 /HPF (0.0-6.0) 03/09/19 08:59 U Epithel Cells (Auto) < 1.0 /HPF (0-13.0) 03/09/19 08:59 Urine Opiates Screen Presumptive negative 03/09/19 08:59 Urine Methadone Screen Presumptive negative 03/09/19 08:59 Ur Barbiturates Screen Presumptive negative 03/09/19 08:59 Ur Phencyclidine Scrn Presumptive negative 03/09/19 08:59 Ur Amphetamines Screen Presumptive negative 03/09/19 08:59 U Benzodiazepines Scrn Presumptive negative 03/09/19 08:59 Urine Cocaine Screen Presumptive negative 03/09/19 08:59 U Marijuana (THC) Screen Presumptive negative 03/09/19 08:59 Drugs of Abuse Note Disclamer 03/09/19 08:59 Plasma/Serum Alcohol < 0.01 % (0-0.07) 03/09/19 08:50 Active Medications - Current Medications Current Medications: Generic Name Dose Route Start Last Admin Trade Name Freq PRN Reason Stop Dose Admin Acetaminophen 650 mg 03/09/19 13:43 03/10/19 00:42 Tylenol PO 650 mg Q4H PRN Administration Pain MILD(1-3)/Fever >100.5/[place]AL[place]ON Amlodipine Besylate 5 mg 03/10/19 10:00 03/11/19 11:42 Amlodipine PO 5 mg DAILY DHEERAJ Administration Enoxaparin Sodium 40 mg 03/09/19 22:00 03/10/19 21:20 Enoxaparin SUB-Q 40 mg QDAY@2200 DHEERAJ Administration Hydralazine HCl 50 mg 03/10/19 16:00 03/11/19 11:41 Apresoline PO 50 mg Q8HR DHEERAJ Administration Levetiracetam 500 mg 03/10/19 22:00 03/11/19 11:42 Keppra PO 500 mg BID DHEERAJ Administration Ondansetron HCl 4 mg 03/09/19 13:43 Zofran IV Q8H PRN Nausea And Vomiting Oxycodone/Acetaminophen 1 tab 03/10/19 03:20 03/11/19 09:38 Percocet 5/325 PO 1 tab Q6H PRN Administration Pain, Moderate (4-6) Sodium Chloride 10 ml 03/09/19 22:00 03/11/19 11:43 Sodium Chloride Flush Syringe 10 Ml IV 10 ml BID DHEERAJ Administration Sodium Chloride 10 ml 03/09/19 13:43 Sodium Chloride Flush Syringe 10 Ml IV PRN PRN LINE FLUSH
[2019-03-11] MEDS ORDERED: amLODIPine 5 MG TAB PO STA (16:56)
[2019-03-11] MEDS: ENOXAPARIN 40 MG/0.4 ML INJ SUB-Q SCH (21:22)
[2019-03-12] MEDS ORDERED: hydrALAZINE 20 MG/1 ML INJ IV PRN (00:14)
[2019-03-12] MEDS: hydrALAZINE 25 MG TAB PO SCH ×3 (00:39→13:10)
[2019-03-12] MEDS: levETIRAcetam 500 MG TAB PO SCH (09:54)
[2019-03-12] MEDS ORDERED: amLODIPine 10 MG TAB PO SCH (10:00)
--- NOTE | 2019-03-12 13:35 | Discharge Summary ---
Providers - Providers Date of Admission: 03/09/19 13:43 Date of discharge: 03/12/19 Attending physician: JANKI EAST 03/10/19 14:19 Consult to Physician [CONS] Routine Comment: Consulting Provider: SURINDER GAO Physician Instructions: Reason For Exam: Seizures Primary care physician: [employer] Hospitalization Condition: Fair Hospital course: 58 YO Male with HTN, Developmental Delay presents to ED for evaluation. Pt is confused, lethargic and unable to provide history. Pt history taken from EMS, ED staff, and patient family. As per family, the patient was in his usual state of health and lying on the couch. The patient suddenly became unresponsive and was noticed by family to have "foam coming out of his mouth" as well as shaking uncontrollably. Pt fell off the couch and struck his head on the floor and bit his tongue. EMS was notified, and upon arrival the patient was found to be in distress and transported to [facility]. Pt seen and evaluated in ED and found to have Encephalopathy, Acidosis, as well as New onset seizure. Pt admitted to medical floor. Pt unable to provide further history. Pt is confused, and lethargic but has a positive gag reflex, and in able to protect his airway. He was admitted, put on Keppra. His BP was high managed with anti-hypertensives. Seizures patient presented with seizures says he last had seizure in 1968 He was seen by Neurology . Morbid obesity adviced diet and exercise Hypertensive urgency BP was uncontrolled, therefore increased Norvasc to 10mg po daily, and increased Hydralazine to 100mg tid Total time spent on discharge, 32 mins Disposition: TO HOME OR SELFCARE - Discharge Diagnoses (1) Seizure disorder Status: Acute (2) Hypertensive urgency Status: Acute Core Measure Documentation - Palliative Care Palliative Care/ Comfort Measures: Not Applicable - Core Measures Any of the following diagnoses?: none Exam - Constitutional Vitals: Temp Pulse Resp BP Pulse Ox 98.4 F 97 H 20 187/88 94 03/12/19 12:06 03/12/19 13:10 03/12/19 12:06 03/12/19 13:10 03/12/19 12:06 Plan Activity: no driving until cleared by PCP Diet: low fat, low cholesterol, low salt Plan of Treatment: 1.Follow up with PCP or [facility] in 1 week. 2.No driving for 6 months until cleared by PCP 3.Follow up with Neurology in 1 week. Follow up with: PRIMARY CARE,MD [Primary Care Provider] - 3-5 Days Prescriptions: amLODIPine 10 mg PO QDAY #30 tablet hydrALAZINE [Apresoline TAB] 100 mg PO TID #90 tab levETIRAcetam [Keppra TAB] 500 mg PO BID #60 tablet
[2019-03-12 19:14] VITALS: BP 172/97
== END 2019-03-12 20:30 | disposition home or self-care (01) | DRG 101 ==
LOC: EDBD 08:17 → ED 08:17 → 3A 13:43
PROVIDERS: ADMIT Internal Medicine; ATTEND Internal Medicine
PROC: 4A033R1 Measurement of Arterial Saturation, Peripheral, Percutaneous Approach (ICD-10-PCS; principal; 2019-03-09)
DX: G40.909 Epilepsy, unspecified, not intractable, without status epilepticus (principal); G93.40 Encephalopathy, unspecified; E87.2 Acidosis; Z68.42 Body mass index [BMI] 45.0-49.9, adult; I10 Essential (primary) hypertension; I16.0 Hypertensive urgency; E66.01 Morbid (severe) obesity due to excess calories; R09.02 Hypoxemia; Z71.3 Dietary counseling and surveillance; Z79.899 Other long term (current) drug therapy
CPT/HCPCS: 36415; 70450; 70553; 71046; 71275; 80053; 80307; 80320; 81001; 82550; 82803; 82962; 83735; 84439; 84443; 84484; 85027; 85610; 85730; 90686; 93005; 93010; 95819; G0378; A9577; G0480; J1650; Q9967